=== PATIENT | female | born 1945 | race Caucasian/White ===

== ENCOUNTER → 2021-09-27 | Day surgery (SDC) | payer MEDICARE, OTHER ==
[~2021-09-27] MED LIST: ACETAMINOPHEN 500 MG TABLET PO PRN; ASPI-630 PO; BALANCED SALT IRRIG SOLN NO.2 500 ML IO ONE; BENZONATATE 100 MG CAPSULE. PO PRN; BRIMONIDINE 0.2% OPHTH SOLUTION 5ML BOTTLE. OS ONE; CEFUROXIME OPHTH 4 MG/0.4 ML SYRINGE. OS ONE; CHONDROIT-SOD-HYALURONATE KIT. OS ONE; CRESTOR20 MG PO; IBUPROFEN 200 MG TABLET PO PRN; LATA; LATANOPROST EYE; LIDO/EPI IN BSS OPHTH 2.7 ML SYRINGE. OS ONE; LIDOCAINE 2% JELLY 6ML IN APPLICATOR. ONE; LOSA25TA PO; MIDAZOLAM HCL PF 2 MG/2 ML VIAL. ONE; PHENYLEPHRINE 10% OPHTH SOLUTION 5ML BOTTLE. OS PRN; POVIDONE-IODINE 5% OPHTH SOLUTION 30ML BOTTLE. OS ONE; POVIDONE-IODINE 5% OPHTH SOLUTION 30ML BOTTLE. OS PRN; PROPARACAINE 0.5% OPHTH SOLUTION 15ML BOTTLE. OS ONE; PROPARACAINE 0.5% OPHTH SOLUTION 15ML BOTTLE. OS PRN; RESTASIS EYE; TRAZ-125 PO; prednisoLONE ACETATE 1% OPHTH SUSPENSION 5ML BOTTLE. OS ONE
[2021-09-27] MEDS: KETOROLAC TROMETHAMINE 0.5% OPHTH SOLUTION BOTTLE. OS SCH ×2 (09:47→09:53)
[2021-09-27] MEDS: TOBRAMYCIN 0.3% OPHTH SOLUTION 5ML BOTTLE. OS SCH ×2 (09:47→09:53)
[2021-09-27] MEDS: TROPICAMIDE 1% OPHTH SOLUTION 15ML BOTTLE. OS SCH ×3 (09:47→09:58)
[2021-09-27] MEDS: PHENYLEPHRINE 2.5% OPHTH SOLUTION 2ML BOTTLE. OS SCH ×3 (09:47→09:58)
--- NOTE | 2021-09-27 11:23 | PDOC4 ---
SURGEON: Gerardo Gaming MD Date of Procedure: 09/27/21 PREOP Diagnosis Visually significant cataract: Left Eye OS POSTOP Diagnosis Same PROCEDURE: Phaco w/ posterior chamber IOL: Left Eye OS ANESTHESIA Deep forniceal periocular 2% Lidocaine jelly Jody/retro bulbar block with 2% Lidocaine with 0.5% Marcaine DESCRIPTION OF PROCEDURE The risks, benefits, and alternatives were discussed with the patient who elected to proceed. Informed consent was obtained in writing and placed in the chart After anesthetizing the eye topically, the patient was taken to the operating room, and the operative eye was prepped and draped in the usual sterile fashion for ocular surgery. A wire lid speculum was placed. A 1-mm clear corneal paracentesis incision was created with the side-port blade at a position three o'clock hours clockwise from the temporal cornea. Then, 1% non-preserved Lidocaine with epinephrine was injected into the anterior chamber followed by viscoelastic. Cotton-tipped applicators were used to stabilize the globe, and a 2.4 mm keratome was used to create a self-sealing incision in clear cornea at the temporal limbus. The Utrata forceps were used to create a continuous curvilinear capsulorrhexis. Balanced saline solution was injected via cannula beneath the capsulorrhexis edge to hydrodissect the lens nucleus and cortex from the lens capsule. The phacoemulsification handpiece and a chopping instrument were then used to remove the lens nucleus. The remaining epinuclear material and cortex were removed with the irrigation/aspiration handpiece. Vis coelastic was used to re-inflate the lens capsule, and the intraocular lens was injected directly into the capsular bag. The corneal wound edges were hydrated with balanced salt solution on a cannula and the irrigation/aspiration handpiece was used to extract the remaining viscoelastic. Cefuroxime 0.1mg/ml / Vigamox 0.5% was injected into the anterior chamber intracamerally. The wounds were inspected and found to be watertight at an appropriate intraocular pressure. Topical antibiotic drops were placed on the corneal surface. LRI: No If Yes, Number [] [place] [] Length [] degrees Depth [] microns Incision [place]: 180 Toric Lens [place] [] Patch/shield with Maxitrol/Tobradex/Erythromycin ointment: Yes No Co-managed patients/postop examination stable for co-management with referring doctor. EBL EBL: None SPECIMANS COLLECTED Specimens Collected: None GERARDO GAMING MD Sep 27, 2021 11:23
[2021-09-27 11:34] VITALS: BP 156/68
== END | disposition home or self-care (01) ==
LOC: SURG 11:04
PROVIDERS: ATTEND Ophthalmology
DX: H25.89 Other age-related cataract (principal); I10 Essential (primary) hypertension; E78.00 Pure hypercholesterolemia, unspecified; M19.90 Unspecified osteoarthritis, unspecified site; Z79.82 Long term (current) use of aspirin; Z79.899 Other long term (current) drug therapy; Z98.890 Other specified postprocedural states; Z72.89 Other problems related to lifestyle
CPT/HCPCS: 66984; C1783; J2250; V2632

== ENCOUNTER → 2021-10-18 | Day surgery (SDC) | payer MEDICARE, OTHER ==
[~2021-10-18] MED LIST changes: +BRIMONIDINE 0.2% OPHTH SOLUTION 5ML BOTTLE. OD ONE; -BRIMONIDINE 0.2% OPHTH SOLUTION 5ML BOTTLE. OS ONE; +CEFUROXIME OPHTH 4 MG/0.4 ML SYRINGE. OD ONE; -CEFUROXIME OPHTH 4 MG/0.4 ML SYRINGE. OS ONE; +CHONDROIT-SOD-HYALURONATE KIT. OD ONE; -CHONDROIT-SOD-HYALURONATE KIT. OS ONE; +IPRATRPIUM/ALBUTEROL 0.5/2.5MG 3 ML NEBU. NEB PRN; +IV RINGERS SOLUTION,LACTATED 1,000 ML IV SCH; +LIDO/EPI IN BSS OPHTH 2.7 ML SYRINGE. OD ONE; -LIDO/EPI IN BSS OPHTH 2.7 ML SYRINGE. OS ONE; -LIDOCAINE 2% JELLY 6ML IN APPLICATOR. ONE; +MIDAZOLAM HCL PF 2 MG/2 ML VIAL. IV ONE; +ONDANSETRON PF 4 MG/2 ML VIAL. IV PRN; +PHENYLEPHRINE 10% OPHTH SOLUTION 5ML BOTTLE. OD PRN; -PHENYLEPHRINE 10% OPHTH SOLUTION 5ML BOTTLE. OS PRN; +POVIDONE-IODINE 5% OPHTH SOLUTION 30ML BOTTLE. OD ONE; +POVIDONE-IODINE 5% OPHTH SOLUTION 30ML BOTTLE. OD PRN; -POVIDONE-IODINE 5% OPHTH SOLUTION 30ML BOTTLE. OS ONE; -POVIDONE-IODINE 5% OPHTH SOLUTION 30ML BOTTLE. OS PRN; +PROPARACAINE 0.5% OPHTH SOLUTION 15ML BOTTLE. OD ONE; +PROPARACAINE 0.5% OPHTH SOLUTION 15ML BOTTLE. OD PRN; -PROPARACAINE 0.5% OPHTH SOLUTION 15ML BOTTLE. OS ONE; -PROPARACAINE 0.5% OPHTH SOLUTION 15ML BOTTLE. OS PRN; +prednisoLONE ACETATE 1% OPHTH SUSPENSION 5ML BOTTLE. OD ONE; -prednisoLONE ACETATE 1% OPHTH SUSPENSION 5ML BOTTLE. OS ONE
[2021-10-18] MEDS: TROPICAMIDE 1% OPHTH SOLUTION 15ML BOTTLE. OD SCH ×3 (08:08→08:27)
[2021-10-18] MEDS: PHENYLEPHRINE 2.5% OPHTH SOLUTION 2ML BOTTLE. OD SCH ×3 (08:09→08:27)
[2021-10-18] MEDS: KETOROLAC TROMETHAMINE 0.5% OPHTH SOLUTION BOTTLE. OD SCH ×2 (08:09→08:21)
[2021-10-18] MEDS: TOBRAMYCIN 0.3% OPHTH SOLUTION 5ML BOTTLE. OD SCH ×2 (08:09→08:21)
--- NOTE | 2021-10-18 10:02 | PDOC4 ---
Cataract i-Stent Injection Surgeon: Gerardo Gaming MD Date of Procedure: 10/18/21 Preop Diagnosis: Visually significant cataract: Right Eye OD Primary open angle glaucoma: Right eye Postop Diagnosis: Postop Diagnosis: Same Procedure: Phaco w/ posterior chamber IOL: Right Eye OD iStent Inject Trabecular Micro: Right eye Anesthesia: Deep forniceal periocular 2% Lidocaine jelly Jody/retro bulbar block with 2% Lidocaine with 0.5% Marcaine Description of Procedure: The risks, benefits, and alternatives were discussed with the patient who elected to proceed. Informed consent was obtained in writing and placed in the chart After anesthetizing the eye topically, the patient was taken to the operating room, and the operative eye was prepped and draped in the usual sterile fashion for ocular surgery. A wire lid speculum was placed. A 1-mm clear corneal paracentesis incision was created with the sideport blade at a position three clock hours clockwise from the temporal cornea. Then 1% non -preserved Lidocaine with epinephrine was injected into the anterior chamber followed by viscoelastic. Cotton-tipped applicators were used to stabilize the globe, and a 2.4 mm keratome was used to create a self-sealing incision in the clear cornea at the temporal limbus. At this point, the head of the patient was titled away from the surgeon and the microscope was angled nasally to facilitate visualization of the nasal angle structures. Viscoelastic was placed on the corneas and a gonioprism was used to implate two iStents into the nasal trabecular meshwork. These were visualized and found to be stable in an appropriate position. The Utrata forceps were used to create a continuous curvilinear capsulorrhexis. Balanced saline solution was injected via cannula beneath the capsulorrhexis edge to hydrodissect the lens nucleus and cortex from the lens capsule. The phacoemulsification handpiece and a chopping instrument were then used to remove the lens nucleus. The remaining epinuclear material and cortex were removed with the irrigation/aspiration handpiece. Viscoelastic was used to re-inflate the lens capsule, and the intraocular lens was injected directly into the capsular bag. The corneal wound edges were hydrated with balanced salt solution on a cannula and the irrigation/aspiration handpiece was used to extract the remaining viscoelastic. Cefuroxime 0.1mg/ml/Vigamox 0.5% was injected into the anterior chamber intracamerally. The wounds were inspected and found to be watertight at an appropriate interocular pressure. The lid speculum and drapes were carefully removed. The patient was taken to the recovery area in good condition. Co-managed patients/postop examination stable for co-management with referring Doctor. Incision [place]: Incision [place]: 180 LRI: LRI: No Patch/Shield with Max/Tob/Eryt Patch/shield with Maxitrol/Tobradex/Erythromycin ointment: Yes No EBL: EBL: None Specimens Collected: Specimens Collected: None GERARDO GAMING MD Oct 18, 2021 10:02
[2021-10-18 10:11] VITALS: BP 14/96
== END | disposition home or self-care (01) ==
LOC: SURG 07:29
PROVIDERS: ATTEND Ophthalmology
DX: H40.1111 Primary open-angle glaucoma, right eye, mild stage (principal); I10 Essential (primary) hypertension; Z79.82 Long term (current) use of aspirin; Z79.899 Other long term (current) drug therapy; Z98.890 Other specified postprocedural states; Z88.8 Allergy status to other drugs, medicaments and biological substances; Z72.89 Other problems related to lifestyle
CPT/HCPCS: 0191T; 0376T; 66984; C1783; J2250; V2632

== ENCOUNTER 2022-02-28 07:12 | Emergency (ER) | payer MEDICARE, OTHER ==
[~2022-02-28] VITALS: Ht 160 cm; Wt 60.8 kg
[~2022-02-28 07:12] MED LIST changes: -ACETAMINOPHEN 500 MG TABLET PO PRN; -BALANCED SALT IRRIG SOLN NO.2 500 ML IO ONE; -BENZONATATE 100 MG CAPSULE. PO PRN; -BRIMONIDINE 0.2% OPHTH SOLUTION 5ML BOTTLE. OD ONE; -CEFUROXIME OPHTH 4 MG/0.4 ML SYRINGE. OD ONE; -CHONDROIT-SOD-HYALURONATE KIT. OD ONE; -IBUPROFEN 200 MG TABLET PO PRN; -IPRATRPIUM/ALBUTEROL 0.5/2.5MG 3 ML NEBU. NEB PRN; -IV RINGERS SOLUTION,LACTATED 1,000 ML IV SCH; -LIDO/EPI IN BSS OPHTH 2.7 ML SYRINGE. OD ONE; -MIDAZOLAM HCL PF 2 MG/2 ML VIAL. IV ONE; -MIDAZOLAM HCL PF 2 MG/2 ML VIAL. ONE; -ONDANSETRON PF 4 MG/2 ML VIAL. IV PRN; -PHENYLEPHRINE 10% OPHTH SOLUTION 5ML BOTTLE. OD PRN; -POVIDONE-IODINE 5% OPHTH SOLUTION 30ML BOTTLE. OD ONE; -POVIDONE-IODINE 5% OPHTH SOLUTION 30ML BOTTLE. OD PRN; -PROPARACAINE 0.5% OPHTH SOLUTION 15ML BOTTLE. OD ONE; -PROPARACAINE 0.5% OPHTH SOLUTION 15ML BOTTLE. OD PRN; -prednisoLONE ACETATE 1% OPHTH SUSPENSION 5ML BOTTLE. OD ONE
--- NOTE | 2022-02-28 07:30 | PHYS DOC ---
Past History Past Medical History: High Cholesterol, Hypertension Additional Past Surgical Histo: Bowel resection secondary to small bowel obstruction Smoking: Non-smoker Drug Use: None General Adult EDM: Chief Complaint: ABDOMINAL PAIN HPI: HPI: Patient is a 77-year-old female who arrives ambulatory to the emergency department complaining of developing abdominal pain since yesterday. Patient points to the region of her umbilicus and inferior to that as to where her pain has been since yesterday. Patient reports that initially started as a dull ache and has progressively gotten worse. Patient states despite her pain it does not radiate. Patient further denies any nausea, vomiting or diarrhea. Additionally she denies any dysuria or fevers. She is awake, alert and uncomfortable appearing. Review of Systems: Review of Systems: Constitutional: Denies fever or chills Eyes: Denies change in visual acuity HENT: Denies nasal congestion or sore throat Respiratory: Denies cough or shortness of breath Cardiovascular: Denies chest pain or edema GI: Reports abdominal pain. Denies nausea, vomiting, bloody stools or diarrhea : Denies dysuria Musculoskeletal: Denies back pain or joint pain Integument: Denies rash Neurologic: Denies headache, focal weakness or sensory changes Endocrine: Denies polyuria or polydipsia Lymphatic: Denies swollen glands Psychiatric: Denies depression or anxiety Allergies: Allergies: Allergies Coded Allergies Type Severity Reaction Last Updated Verified nitrofurantoin Allergy Intermediate nausea 02/28/22 Yes Physical Exam: PE: Constitutional: Uncomfortable appearing. Well developed, well nourished, non- toxic appearance. [] HENT: Normocephalic, atraumatic, bilateral external ears normal, oropharynx moist, no oral exudates, nose normal. [] Eyes: PERRLA, EOMI, conjunctiva normal, no discharge. [] Neck: Normal range of motion, no tenderness, supple, no stridor. [] Cardiovascular:Heart rate regular rhythm, no murmur [] Lungs & Thorax: Bilateral breath sounds clear to auscultation [] Abdomen: Tenderness to palpation of the abdomen in the periumbilical region as well as left lower quadrant. Bowel sounds normal, soft, no masses, no pulsatile masses. [] Skin: Warm, dry, no erythema, no rash. [] Back: No tenderness, no CVA tenderness. [] Extremities: No tenderness, no cyanosis, no clubbing, ROM intact, no edema. [] Neurologic: Alert and oriented X 3, normal motor function, normal sensory function, no focal deficits noted. [] Psychologic: Affect normal, judgement normal, mood normal. [] EKG: EKG: [] Radiology/Procedures: Radiology/Procedures: [][place] [id number] IMAGING REPORT Signed PATIENT: SHARDA KEITH ACCOUNT: [id number] : 1945 LOCATION: ER AGE: 77 SEX: F EXAM STATUS: REG ER ORD. PHYSICIAN: CONNIE BERKOWITZ DO REASON: low abdominal pain, constipation, vomiting PROCEDURE: CT ABDOMEN PELVIS WO CONTRAST EXAM: Abdomen and pelvis CT without intravenous contrast. HISTORY: Pain. TECHNIQUE: Computed tomographic images of the abdomen and pelvis were obtained without contrast. Multiplanar reformatting was performed. *One or more of the following individualized dose reduction techniques were utilized for this examination: 1. Automated exposure control. 2. Adjustment of the mA and/or kV according to patient size. 3. Use of iterative reconstruction technique. COMPARISON: None. FINDINGS: Evaluation of the lower thorax demonstrates medial right middle lobe and lingular atelectasis or scarring. There is bilateral posterior dependent and basilar atelectasis or scarring. There is no infiltrate or pleural effusion. No suspicious hepatic lesion is seen. The gallbladder is unremarkable. There is and extrahepatic biliary and pancreatic ductal dilatation. No obstructing lesion is seen at the ampulla. There is a small focus of hypodensity within the pancreatic head which is likely due to volume averaging of a portion of duct. There is a small proximal duodenal diverticulum. The spleen is normal in size. There are degenerative glands are unremarkable. There is a 2.1 cm hyperdense lesion along the superior lateral right kidney, likely due to a hemorrhagic cyst given the presence of multiple simple appearing renal cysts. Evaluation for solid renal lesions is limited in the absence of contrast. There is no hydronephrosis. There is dilatation of loops of small bowel within the left mid and lower abdomen. There is a transition point to decompressed small bowel within the left lower quadrant near an enteric anastomosis. There is a moderate to large amount of colonic stool. The bladder is decompressed. There is a 2.3 cm right adnexal cyst, likely ovarian in etiology. There is aortic and aortic branch vessel atherosclerosis. There is no lymphadenopathy. There is degenerative change throughout the spine and both hips. There is bone demineralization. There is no acute osseous finding. IMPRESSION: 1. Suspected partial small bowel obstruction within the left mid lower abdomen with a transition point within the left lower quadrant near an enteric anastomosis. 2. Multiple simple appearing renal cysts and suspected 2.1 cm hemorrhagic right renal cyst. Renal sonography can be performed to exclude a solid lesion. 3. Biliary and pancreatic ductal dilatation. No obstructing lesion is seen. MRCP can be performed if there is clinical concern for an occult obstructing lesion. 4. Moderate to large amount of colonic stool. 5. 2.3 cm right ovarian cyst. Given the postmenopausal status the patient, pelvic sonography can be performed for characterization. Electronically signed by: Brandy Ross MD (02/28/2022 8:18 AM) [id number] Heart Score: C/O Chest Pain: No Risk Factors: Risk Factors: DM, Current or recent (<one month) smoker, HTN, HLP, family history of CAD, obesity. Risk Scores: Score 0 - 3: 2.5% MACE over next 6 weeks - Discharge Home Score 4 - 6: 20.3% MACE over next 6 weeks - Admit for Clinical Observation Score 7 - 10: 72.7% MACE over next 6 weeks - Early Invasive Strategies Course & Med Decision Making: Course & Med Decision Making The patient was taken to room 4 in the emergency department where IV access was established, blood was obtained after physical examination. Patient was then sent to CT for imaging with respect to her abdominal pain and found to have a partial small bowel obstruction. Given the patient has a history of a previous partial colectomy and there are no surgical services currently available, the patient has been transferred to [facility] for further evaluation and treatment. Dr. Liz from internal medicine has agreed to accept the patient in transfer and Dr. Santos has agreed to consult from general surgery. The patient understands this and has agreed to this. She is nontoxic-appearing and awaiting transport. Sukumar Disclaimer: Sukumar Disclaimer: This electronic medical record was generated, in whole or in part, using a voice recognition dictation system. Departure Departure: Impression: Primary Impression: Partial small bowel obstruction Disposition: 30 STILL A PATIENT Condition: STABLE Referrals: SHOAIB BEVERLY (PCP) CONNIE BERKOWITZ DO February 28, 2022 07:30
[2022-02-28 08:08] LABS: BASO % 0 % (0-3); EOS # 0.1 x10^3/uL (0.0-0.7); EOS % 1 % (0-3); HEMATOCRIT 36.6 % (36.0-47.0); HEMOGLOBIN 12.2 g/dL (12.0-15.5); LYMPH # 1.3 x10^3/uL (1.0-4.8); LYMPH % 14 % (24-48); MEAN CORPUSCULAR HEMOGLOBIN 32 pg (25-35); MEAN CORPUSCULAR HGB CONC 33 g/dL (31-37); MEAN CORPUSCULAR VOLUME 95 fL (79-100); MONO # 0.8 x10^3/uL (0.0-1.1); MONO % 8 % (0-9); NEUT # 7.3 x10^3uL (1.8-7.7); NEUT % 77 % (31-73); PLATELET COUNT 272 x10^3/uL (140-400); RED BLOOD COUNT 3.87 x10^6/uL (3.50-5.40); RED CELL DISTRIBUTION WIDTH 13.7 % (11.5-14.5); WHITE BLOOD COUNT 9.5 x10^3/uL (4.0-11.0)
[2022-02-28 08:14] LABS: CALCIUM 9.5 mg/dL (8.5-10.1); CREATININE 1.1 mg/dL (0.6-1.0)
[2022-02-28 08:20] LABS: ALBUMIN 3.7 g/dL (3.4-5.0); ALBUMIN/GLOBULIN RATIO 1.3 (1.0-1.7); TOTAL BILIRUBIN 0.7 mg/dL (0.2-1.0); TOTAL PROTEIN 6.5 g/dL (6.4-8.2)
--- NOTE | 2022-02-28 08:20 | RAD ---
EXAM: Abdomen and pelvis CT without intravenous contrast. HISTORY: Pain. TECHNIQUE: Computed tomographic images of the abdomen and pelvis were obtained without contrast. Mult iplanar reformatting was performed. *One or more of the following individualized dose reduction techniques were utilized for this examina tion: 1. Automated exposure control. 2. Adjustment of the mA and/or kV according to patient size. 3. Use of iterative reconstruction technique. COMPARISON: None. FINDINGS: Evaluation of the lower thorax demonstrates medial right middle lobe and lingular atelectas is or scarring. There is bilateral posterior dependent and basilar atelectasis or scarring. There is no infiltrate or pleural effusion. No suspicious hepatic lesion is seen. The gallbladder is unremarkable. There is and extrahepatic bili veronica and pancreatic ductal dilatation. No obstructing lesion is seen at the ampulla. There is a small focus of hypodensity within the pancreatic head which is likely due to volume averaging of a portion of duct. There is a small proximal duodenal diverticulum. The spleen is normal in size. There are deg enerative glands are unremarkable. There is a 2.1 cm hyperdense lesion along the superior lateral right kidney, likely due to a hemorrha gic cyst given the presence of multiple simple appearing renal cysts. Evaluation for solid renal lesi ons is limited in the absence of contrast. There is no hydronephrosis. There is dilatation of loops of small bowel within the left mid and lower abdomen. There is a transit ion point to decompressed small bowel within the left lower quadrant near an enteric anastomosis. The re is a moderate to large amount of colonic stool. The bladder is decompressed. There is a 2.3 cm right adnexal cyst, likely ovarian in etiology. There is aortic and aortic branch v essel atherosclerosis. There is no lymphadenopathy. There is degenerative change throughout the spine and both hips. There is bone demineralization. There is no acute osseous finding. IMPRESSION: 1. Suspected partial small bowel obstruction within the left mid lower abdomen with a transition poin t within the left lower quadrant near an enteric anastomosis. 2. Multiple simple appearing renal cysts and suspected 2.1 cm hemorrhagic right renal cyst. Renal son ography can be performed to exclude a solid lesion. 3. Biliary and pancreatic ductal dilatation. No obstructing lesion is seen. MRCP can be performed if there is clinical concern for an occult obstructing lesion. 4. Moderate to large amount of colonic stool. 5. 2.3 cm right ovarian cyst. Given the postmenopausal status the patient, pelvic sonography can be p erformed for characterization. Electronically signed by: Brandy Ross MD (02/28/2022 8:18 AM) [id number]
[2022-02-28 08:30] LABS: BACTERIA,URINE 0 /HPF (0-FEW); CLARITY,URINE CLEAR; COLOR,URINE YELLOW; GLUCOSE,URINE NEG (NEG); HYALINE CASTS, URINE FEW /HPF; NITRITE,URINE NEG (NEG); SQUAMOUS EPITHELIAL CELL,UR FEW /LPF; UROBILINOGEN,URINE 0.2 mg/dL (0.2 mg/dL)
[2022-02-28] MEDS ORDERED: ONDANSETRON PF 4 MG/2 ML VIAL. IVP ONE (09:15)
[2022-02-28] MEDS ORDERED: MORPHINE SULFATE 4 MG/ML DISP.SYRIN. IV ONE (09:15)
[2022-02-28] MEDS ORDERED: ONDANSETRON PF 4 MG/2 ML VIAL. ONE (09:17)
[2022-02-28] MEDS ORDERED: MORPHINE SULFATE 4 MG/ML DISP.SYRIN. ONE (09:18)
[2022-02-28 10:30] VITALS: BP 164/84
== END 2022-02-28 10:40 | disposition still patient (30) ==
LOC: ER 07:12
DX: K56.600 Partial intestinal obstruction, unspecified as to cause (principal); E78.00 Pure hypercholesterolemia, unspecified; I10 Essential (primary) hypertension; Z20.822 Contact with and (suspected) exposure to COVID-19; Z88.8 Allergy status to other drugs, medicaments and biological substances
CPT/HCPCS: 36415; 74176; 80053; 81001; 85025; 87086; 87426; 96374; 96375; 99284; C9803; J2270; J2405; U0003